=== PATIENT | female | born 1980 | race Caucasian/White ===

== ENCOUNTER 2017-03-10 16:39 | Emergency (ER) | payer BC ==
[~2017-03-10] VITALS: Ht 170.2 cm; Wt 100.0 kg
[~2017-03-10 16:39] MED LIST: AMOXICILLIN500 MG PO
[2017-03-10 17:42] LABS: BARBITURATES NEGATIVE (NEGATIVE); COCAINE NEGATIVE (NEGATIVE); METHADONE NEGATIVE (NEGATIVE); OXCYCODONE NEGATIVE (NEGATIVE); TETRAHYDROCANNABIONOL POSITIVE (NEGATIVE); TRICYLIC ANTIDEPRESSANTS NEGATIVE (NEGATIVE)
[2017-03-10 17:43] LABS: HEMATOCRIT 42.5 % (37.0-47.0); HEMOGLOBIN 14.1 g/dl (12.0-16.0); IMMATURE GRANULOCYTES 0.4 % (0.0-1.0); MEAN CELL VOLUME 93.2 fL CALC (80.0-100.0); MEAN CORPUSCULAR HGB 30.9 pG CALC (26.0-32.0); MEAN CORPUSCULAR HGB CONC 33.2 g/L CALC (32.0-36.0); NEUT# 5.43 thou/uL (2.00-7.15); RED BLOOD COUNT 4.56 mill/uL (4.20-5.60); RED CELL DISTRI WIDTH 12.7 % (11.5-15.5)
[2017-03-10 18:07] LABS: ALBUMIN 4.5 g/dL (3.2-5.0); ALKALINE PHOSPHATASE 65 u/l (38-126); ANION GAP 16 (6-22 (CALC)); BILIRUBIN, TOTAL 0.6 mg/dL (0.0-1.4); BUN 11 mg/dL (7-17); BUN/CREATININE RATIO 16 (12-20 (CALC)); CALCIUM 9.8 mg/dL (8.4-10.2); CARBON DIOXIDE 25 mmol/l (22-30); CHLORIDE 107 mmol/l (95-108); CREATININE 0.7 mg/dL (0.5-1.0); GFR > 60 ML/MIN (>=60 (CALC)); GFR FOR AFR.AMER. > 60 ML/MIN (>=60 (CALC)); GLUCOSE 103 mg/dL (65-105); POTASSIUM 4.1 mmol/l (3.5-5.1); SGOT/AST 50 u/l (14-36); SGPT/ALT 83 u/l (9-52); SODIUM 143 mmol/l (137-146); TOTAL PROTEIN 7.5 g/dL (6.3-8.2)
[2017-03-10] MEDS ORDERED: TORADOL PO (18:13)
[2017-03-10 18:22] VITALS: BP 149/78
== END 2017-03-10 18:42 | disposition home or self-care (01) | DRG 103 ==
LOC: ED 16:39
PROVIDERS: Emergency Medicine
DX: R51 Headache (principal); R11.0 Nausea

== ENCOUNTER 2017-10-13 16:07 | Emergency (ER) | payer BC ==
[~2017-10-13] VITALS: Ht 170.2 cm; Wt 121.0 kg
[~2017-10-13 16:07] MED LIST changes: +TORADOL PO
[2017-10-13] MEDS ORDERED: ZPAK PO (16:54)
[2017-10-13] MEDS ORDERED: PROAIR HFA108 MCG/AC IN (16:54)
[2017-10-13] MEDS ORDERED: TESSALON PER100 MG PO (16:54)
[2017-10-13 16:56] VITALS: BP 131/70
== END 2017-10-13 17:00 | disposition home or self-care (01) | DRG 203 ==
LOC: ED 16:07
DX: J40 Bronchitis, not specified as acute or chronic (principal); F17.210 Nicotine dependence, cigarettes, uncomplicated; J02.9 Acute pharyngitis, unspecified; J98.01 Acute bronchospasm; R05 Cough; R09.81 Nasal congestion

== ENCOUNTER 2018-04-28 08:25 | Emergency (ER) | payer BC ==
[~2018-04-28] VITALS: Ht 170.2 cm; Wt 120.5 kg
[~2018-04-28 08:25] MED LIST changes: +PROAIR HFA108 MCG/AC IN; +TESSALON PER100 MG PO; +ZPAK PO
[2018-04-28 09:05] LABS: INFLUENZA B NONE DETECTED (NONE DETECT)
[2018-04-28] MEDS ORDERED: ONDANSETRON4 MG PO (09:13)
[2018-04-28] MEDS ORDERED: DOXYCYC MONO100 M2 PO (09:13)
[2018-04-28 09:25] VITALS: BP 128/70
== END 2018-04-28 09:36 | disposition home or self-care (01) | DRG 153 ==
LOC: ED 08:25
PROVIDERS: Family Medicine
DX: J11.1 Influenza due to unidentified influenza virus with other respiratory manifestations (principal); F17.210 Nicotine dependence, cigarettes, uncomplicated

== ENCOUNTER 2019-01-12 14:35 | Emergency (ER) | payer BC ==
[~2019-01-12] VITALS: Ht 170.2 cm; Wt 118.2 kg
[~2019-01-12 14:35] MED LIST changes: +DOXYCYC MONO100 M2 PO; +ONDANSETRON4 MG PO
[2019-01-12 16:10] VITALS: BP 144/84
== END 2019-01-12 16:10 | disposition home or self-care (01) | DRG 605 ==
LOC: ED 14:35
DX: S60.221A Contusion of right hand, initial encounter (principal); F17.210 Nicotine dependence, cigarettes, uncomplicated; W23.0XXA Caught, crushed, jammed, or pinched between moving objects, initial encounter; Y92.009 Unspecified place in unspecified non-institutional (private) residence as the place of occurrence of the external cause